=== PATIENT | female | born 1975 | race Caucasian/White ===

== ENCOUNTER 2019-11-29 17:37 | Emergency (ER) | payer SELFPAY ==
--- NOTE | 2019-11-29 18:59 | ER ---
Nurse's Notes [facility] Name: Dipesh Edward Age: 44 yrs Sex: Female : 1975 Arrival Date: 11/29/2019 Time: 17:39 Bed Waiting Private MD: Diagnosis: Presentation: 11/28 17:46 Chief complaint: Patient states: N/V/D for 1 day, started at 5 am. Reports palpitations ll1 also. Coronavirus screen: Client denies travel out of the [place] in the last 14 days. diarrhea, fatigue, nausea, vomiting. Client presents with at least one sign or symptom that may indicate coronavirus-19. Standard/surgical mask placed on the client. Ebola Screen: Patient denies travel to an Ebola-affected area in the 21 days before illness onset. Initial Sepsis Screen: Does the patient meet any 2 criteria? No. Patient's initial sepsis screen is negative. Initial Sepsis Screen: Does the patient have a suspected source of infection? Yes: Acute abdominal pain. Risk Assessment: Do you want to hurt yourself or someone else? Patient reports no desire to harm self or others. Onset of symptoms was November 29, 2019. 17:46 Method Of Arrival: Ambulatory ll1 17:46 Acuity: BRODIE 3 ll1 Historical: - Allergies: 17:48 PENICILLINS; ll1 17:48 Codeine; ll1 - PMHx: 17:49 Hypertension; Depression; ll1 - PSHx: 17:48 Tonsillectomy; Cholecystectomy; ll1 - Immunization history:: Flu vaccine is not up to date. - Social history:: Smoking status: Patient reports the use of cigarette tobacco products, smokes one-half pack cigarettes per day. Vital Signs: 17:46 BP 130 / 109; Pulse 61; Resp 18; Temp 98.8; Pulse Ox 95% ; Weight 72.57 kg; Height 5 ll1 ft. 7 in. (170.18 cm); Pain 0/10; 17:46 Body Mass Index 25.06 (72.57 kg, 170.18 cm) ll1 ED Course: 17:39 Patient arrived in ED. ag5 17:48 Triage completed. ll1 17:49 Arm band placed on. ll1 Administered Medications: No medications were administered Outcome: 18:58 Patient left the ED. ll1 Signatures: Ramona Osuna ag5 Shelly Fox RN RN ll1 Corrections: (The following items were deleted from the chart) 17:49 17:46 Chief complaint: Patient states: N/V/D for 1 day, started at 5 am. ll1 ll1
[2019-11-29 20:00] VITALS: BP 130/109; TEMP 98.8; O2SAT 95
--- OUTSIDE RECORDS SUMMARY | 2019-12-01 16:39 | XMS REPORT | Continuity of Care Document ---
:1975 Author Organization [facility] t Address [address] [place] [address] Care Team Providers Name Role Phone Ute Torres Attending Clinician Problems This patient has no known problems. Allergies, Adverse Reactions, Alerts This patient has no known allergies or adverse reactions. Medications This patient has no known medications. Procedures This patient has no known procedures. Encounters Start End Encounter Admission Attending Care Care Encounter Source Date/Time Date/Time Type Type Clinicians Facility Department ID 2019-05-10 2019-05-10 MAURICE Jurado [id number] 13:24:13 16:35:00 Jeanette Mcmahon [id number] [place] [id number] [place] [id number] Results This patient has no known results.
== END 2019-11-29 18:58 | disposition left against medical advice (07) ==
LOC: ER 17:37
DX: Z53.21 Procedure and treatment not carried out due to patient leaving prior to being seen by health care provider (principal)
CPT/HCPCS: 99281